=== PATIENT | male | born 1935 | race Caucasian/White ===

== ENCOUNTER 2019-08-06 17:20 | Outpatient (CLI) | payer MEDICARE, OTHER | END 2019-08-06 17:21 | disposition home or self-care (01) | LOC: MADLAB 17:20 | PROVIDERS: ATTEND Family Medicine | DX: D53.9 Nutritional anemia, unspecified (principal) | CPT/HCPCS: 36415; 82607; 82746 ==

== ENCOUNTER 2021-02-17 12:36 | Emergency (ER) | payer MEDICARE, OTHER ==
[2021-02-17] MEDS ORDERED: Acetaminophen 500 MG TAB ONE (13:40)
== END 2021-02-17 13:50 | disposition home or self-care (01) ==
LOC: MADERS 12:36
DX: S70.02XA Contusion of left hip, initial encounter (principal); E11.9 Type 2 diabetes mellitus without complications; E78.5 Hyperlipidemia, unspecified; I10 Essential (primary) hypertension; Z79.899 Other long term (current) drug therapy; W19.XXXA Unspecified fall, initial encounter
CPT/HCPCS: 72170

== ENCOUNTER 2021-06-14 15:30 | Emergency (ER) | payer MEDICARE, OTHER ==
[2021-06-14] MEDS ORDERED: Sodium Chloride 0.9% 1,000 ML ONE (15:53)
[2021-06-14 16:09] LABS: #Basophils 0.1 thou/uL (0.0-0.2); #Eosinphils 0.1 thou/uL (0.0-0.7); #Lymphocytes 1.1 thou/uL (1.20-3.40); #Monocytes 0.5 thou/uL (0.11-0.59); #Neutrophils 3.4 thou/uL (1.40-6.50); %Eosinophils 1.5 % (0.0-10.0); %Lymphocytes 21.5 % (21.0-51.0); %Monocytes 8.9 % (0.0-10.0); %Neutrophils 67.1 % (42.0-75.0); Hemoglobin 13.7 g/dL (14.0-18.0); Mean Corpuscular HGB CONC 34.2 g/dL (32.0-36.0); Mean Corpuscular Hemoglobin 34.8 pg (27.0-31.0); Mean Corpuscular Volume 101.7 fL (78.0-98.0); Mean Platelet Volume 6.3 fL (7.4-10.4); Platelet Count 159 thou/uL (130-400); RBC Distribution Width 11.8 % (11.5-14.5); Red Blood Cell (RBC) Count 3.96 mill/uL (4.70-6.10); White Blood Cell (WBC) Count 5.1 thou/uL (4.8-10.8)
[2021-06-14 16:10] LABS: MDiff Complete? YES; Manual Diff?? NO
[2021-06-14 16:15] LABS: CK (CPK) 72 U/L (30-200); Magnesium 1.8 mg/dL (1.6-2.6)
[2021-06-14 16:28] LABS: Base Excess-Venous 0.1 mmol/L (-2.0 to 3.0); Bicarbonate (HCO3v) 24.1 mmol/L (22.0-28.0); CO2 Tension (PvCO2) 36.2 mmHg (42.0-51.0); Calcium, Ionized 1.11 mmol/L (1.15-1.33); Chloride 105 mmol/L (98-107); Hemoglobin - Calc 12.8 g/dL (14.0-18.0); Potassium 4.6 mmol/L (3.5-5.1); Sodium 136 mmol/L (138-145); T. Carbon Dioxide 25.2 mmol/L (22.0-28.0); vO2 Saturation-calc 99.1 % (60.0-85.0)
[2021-06-14 17:13] LABS: Bilirubin Negative (Negative); Blood, Urine Trace (Negative); Clarity Clear (Clear); Glucose, Urine (Dipstick) 500 mg/dL (Negative); Ketone, Urine Negative (Negative); Leukocyte Negative (Negative); Nitrite Negative (Negative); Protein, Urine (Dipstick) 30 mg/dL (Neg-Trace); Specific Gravity, Urine 1.015 (1.005-1.030)
[2021-06-14 17:17] LABS: RBC/HPF 0-3 HPF (0-3); WBC/HPF None Seen HPF (0-3)
[2021-06-14 17:18] LABS: Bacteria/HPF None Seen HPF (None Seen); Squamous Epithelial 0-3 HPF (0-3)
[2021-06-14] MEDS ORDERED: Insulin Regular 300 UNITS/3 ML VIAL ONE (17:36)
== END 2021-06-14 17:50 | disposition home or self-care (01) ==
LOC: MADERS 15:30
DX: E11.65 Type 2 diabetes mellitus with hyperglycemia (principal); E78.5 Hyperlipidemia, unspecified; E78.00 Pure hypercholesterolemia, unspecified; I10 Essential (primary) hypertension
CPT/HCPCS: 36415; 81003; 81015; 82330; 82435; 82550; 82803; 83735; 84132; 84295; 85014; 85025; 93005; 96374; J1815; J7050

== ENCOUNTER 2021-08-21 09:56 | Emergency (ER) | payer MEDICARE, OTHER ==
[2021-08-21] MEDS ORDERED: Boostrix 0.5 ML (Tdap) VIAL ONE (10:48)
== END 2021-08-21 13:15 | disposition home or self-care (01) ==
LOC: MADERS 09:56
DX: S72.115A Nondisplaced fracture of greater trochanter of left femur, initial encounter for closed fracture (principal); Z23 Encounter for immunization; W18.39XA Other fall on same level, initial encounter; I10 Essential (primary) hypertension; E11.9 Type 2 diabetes mellitus without complications; E78.5 Hyperlipidemia, unspecified; E78.00 Pure hypercholesterolemia, unspecified
CPT/HCPCS: 72170; 90471; 90715

== ENCOUNTER 2021-09-07 11:02 | Inpatient (IN) | payer MEDICARE, OTHER ==
[2021-09-07 13:11] VITALS: BMI 17.2
[2021-09-07] MEDS ORDERED: Lantiseptic Ointment 130 GM JAR TOP PRN (13:49)
[2021-09-07 14:04] LABS: SARS-CoV-2 NAA Rapid Test Not Detected (NotDetected)
[2021-09-07] MEDS ORDERED: traMADol HCl 50 MG TAB PO PRN (14:30)
[2021-09-07 17:50] LABS: ALT (SGPT) 10 U/L (8-55); AST (SGOT) 11 U/L (5-34); Alkaline Phosphatase 110 U/L (40-110); Anion Gap 13 mmol/L (10-20); BUN (Urea Nitrogen) 23 mg/dL (8.4-25.7); Bilirubin, Total 0.5 mg/dL (0.2-1.2); Calc. Creatinine Clearance 29 mL/min (70-130); Carbon Dioxide 27 mmol/L (23-31); Chloride 102 mmol/L (98-107); Globulin 2.8 g/dL (2.4-3.5); Glucose 152 mg/dL (83-110); Potassium 4.4 mmol/L (3.5-5.1); Protein, Total 6.8 g/dL (5.8-8.1); Sodium 138 mmol/L (136-145)
[2021-09-07 17:54] LABS: #Eosinphils 0.1 thou/uL (0.0-0.7); #Lymphocytes 1.4 thou/uL (1.20-3.40); #Monocytes 0.4 thou/uL (0.11-0.59); #Neutrophils 2.5 thou/uL (1.40-6.50); %Basophils 0.8 % (0.0-1.0); %Lymphocytes 31.2 % (21.0-51.0); %Monocytes 9.8 % (0.0-10.0); %Neutrophils 55.3 % (42.0-75.0); Hemoglobin 14.1 g/dL (14.0-18.0); Mean Corpuscular HGB CONC 34.5 g/dL (32.0-36.0); Mean Corpuscular Hemoglobin 34.7 pg (27.0-31.0); Mean Corpuscular Volume 100.6 fL (78.0-98.0); Platelet Count 232 thou/uL (130-400); RBC Distribution Width 11.2 % (11.5-14.5); Red Blood Cell (RBC) Count 4.07 mill/uL (4.70-6.10); White Blood Cell (WBC) Count 4.5 thou/uL (4.8-10.8)
[2021-09-07 17:55] LABS: Anisocytosis SLIGHT = 6-15 cells (100X) (0-5/hpf); MDiff Complete? YES; Macrocytosis SLIGHT = 6-15 cells (100X) (0-5/hpf); Platelet Morphology Comment Appears Adequate
[2021-09-07] MEDS: Acetaminophen 325 MG TAB PO PRN (20:03)
[2021-09-07] MEDS: Donepezil HCl 10 MG TAB PO SCH (20:05)
[2021-09-07] MEDS: Simvastatin 20 MG TAB PO SCH (20:05)
[2021-09-07] MEDS ORDERED: Fluticasone Propionate Nasal Spray 16 gm Bottle NASAL PRN (23:15)
[2021-09-07] MEDS: Lantiseptic Ointment 130 GM JAR TOP SCH (23:19)
[2021-09-07] MEDS ORDERED: Sodium Chloride 0.65% Nasal 44 ML BOT EA NARE PRN (23:36)
[2021-09-07] MEDS: traMADol HCl 50 MG TAB PO PRN (23:40)
[2021-09-08] MEDS: Ferrous Sulfate 325 MG TAB PO SCH (08:47)
[2021-09-08] MEDS: Donepezil HCl 10 MG TAB PO SCH ×2 (08:47→20:28)
[2021-09-08] MEDS: Aspirin 81 mg Enteric Coated Tablet PO SCH (08:47)
[2021-09-08] MEDS: Famotidine 20 MG TAB PO SCH (08:48)
[2021-09-08] MEDS: Enoxaparin Sodium 30 MG/0.3 ML SYRINGE SC SCH (08:48)
[2021-09-08] MEDS: Lantiseptic Ointment 130 GM JAR TOP SCH ×2 (08:49→20:29)
[2021-09-08] MEDS: Oxybutynin ER 5 MG TAB PO SCH (08:49)
[2021-09-08] MEDS: Lisinopril 5 MG TAB PO SCH (08:49)
[2021-09-08] MEDS: Multivitamin W/ Minerals 1 TAB PO SCH (08:49)
[2021-09-08] MEDS: traMADol HCl 50 MG TAB PO PRN ×2 (11:52→20:34)
[2021-09-08] MEDS ORDERED: Polyethylene Glycol 3350 17 GM Packet PO PRN (19:49)
[2021-09-08] MEDS: Simvastatin 20 MG TAB PO SCH (20:28)
[2021-09-08] MEDS: Keri Lotion 15 oz BOT TOP SCH (20:28)
[2021-09-09] MEDS: Aspirin 81 mg Enteric Coated Tablet PO SCH (08:12)
[2021-09-09] MEDS: Lisinopril 5 MG TAB PO SCH (08:12)
[2021-09-09] MEDS: Donepezil HCl 10 MG TAB PO SCH ×2 (08:12→20:27)
[2021-09-09] MEDS: Famotidine 20 MG TAB PO SCH (08:12)
[2021-09-09] MEDS: Oxybutynin ER 5 MG TAB PO SCH (08:12)
[2021-09-09] MEDS: Multivitamin W/ Minerals 1 TAB PO SCH (08:12)
[2021-09-09] MEDS: Ferrous Sulfate 325 MG TAB PO SCH (08:14)
[2021-09-09] MEDS: Enoxaparin Sodium 30 MG/0.3 ML SYRINGE SC SCH (08:14)
[2021-09-09] MEDS: Keri Lotion 15 oz BOT TOP SCH ×3 (08:15→20:27)
[2021-09-09] MEDS: Lantiseptic Ointment 130 GM JAR TOP SCH ×2 (08:18→20:27)
[2021-09-09] MEDS ORDERED: Acetaminophen ER (8hr) 650 MG TAB PO ONE (17:46)
[2021-09-09] MEDS: Acetaminophen 325 MG TAB PO PRN (17:51)
[2021-09-09] MEDS: Simvastatin 20 MG TAB PO SCH (20:27)
[2021-09-10] MEDS: Ferrous Sulfate 325 MG TAB PO SCH (08:06)
[2021-09-10] MEDS: Lisinopril 5 MG TAB PO SCH (08:06)
[2021-09-10] MEDS: Famotidine 20 MG TAB PO SCH (08:06)
[2021-09-10] MEDS: Aspirin 81 mg Enteric Coated Tablet PO SCH (08:06)
[2021-09-10] MEDS: Acetaminophen 325 MG TAB PO PRN (08:06)
[2021-09-10] MEDS: Oxybutynin ER 5 MG TAB PO SCH (08:06)
[2021-09-10] MEDS: Multivitamin W/ Minerals 1 TAB PO SCH (08:06)
[2021-09-10] MEDS: Donepezil HCl 10 MG TAB PO SCH (08:06)
[2021-09-10] MEDS: Enoxaparin Sodium 30 MG/0.3 ML SYRINGE SC SCH (08:07)
[2021-09-10] MEDS: Keri Lotion 15 oz BOT TOP SCH (08:07)
[2021-09-10] MEDS: Lantiseptic Ointment 130 GM JAR TOP SCH (08:08)
[2021-09-10 11:52] VITALS: BP 131/71; TEMP 98
[2021-09-10] MEDS: traMADol HCl 50 MG TAB PO PRN (11:54)
== END 2021-09-10 14:37 | disposition swing bed (61) | DRG 560 ==
LOC: UNDOADMIN 11:02 → MADMS 11:02
PROVIDERS: ADMIT Family Medicine; ATTEND Family Medicine
DX: S72.115D Nondisplaced fracture of greater trochanter of left femur, subsequent encounter for closed fracture with routine healing (principal); S32.592A Other specified fracture of left pubis, initial encounter for closed fracture; I10 Essential (primary) hypertension; Z20.822 Contact with and (suspected) exposure to COVID-19; F02.80 Dementia in other diseases classified elsewhere, unspecified severity, without behavioral disturbance, psychotic disturbance, mood disturbance, and anxiety; E11.9 Type 2 diabetes mellitus without complications; E78.5 Hyperlipidemia, unspecified; G89.29 Other chronic pain; R26.89 Other abnormalities of gait and mobility; M62.81 Muscle weakness (generalized); R53.81 Other malaise; G30.9 Alzheimer's disease, unspecified; W19.XXXD Unspecified fall, subsequent encounter; K59.00 Constipation, unspecified; Z88.0 Allergy status to penicillin; Z88.8 Allergy status to other drugs, medicaments and biological substances; Z79.82 Long term (current) use of aspirin; Z79.84 Long term (current) use of oral hypoglycemic drugs; Z79.899 Other long term (current) drug therapy; Z91.81 History of falling; Z91.19 Patient's noncompliance with other medical treatment and regimen
CPT/HCPCS: 36416; 72192; 80053; 85025; J1650; U0002

== ENCOUNTER 2021-09-10 09:52 | Inpatient (IN) | payer MEDICARE, OTHER ==
[2021-09-10] MEDS ORDERED: Sodium Chloride 0.65% Nasal 44 ML BOT EA NARE PRN (10:13)
[2021-09-10] MEDS ORDERED: Fluticasone Propionate Nasal Spray 16 gm Bottle NASAL PRN (10:13)
[2021-09-10] MEDS ORDERED: busPIRone HCl 5 MG TAB PO SCH (15:00)
[2021-09-10] MEDS: Keri Lotion 15 oz BOT TOP SCH ×2 (16:37→20:55)
[2021-09-10] MEDS: busPIRone HCl 5 MG TAB PO SCH (20:55)
[2021-09-10] MEDS: Donepezil HCl 10 MG TAB PO SCH (20:55)
[2021-09-10] MEDS: Atorvastatin Calcium 10 MG TAB PO SCH (20:55)
[2021-09-10] MEDS: Lantiseptic Ointment 130 GM JAR TOP SCH (20:57)
[2021-09-10] MEDS ORDERED: Donepezil HCl 10 MG TAB PO SCH (21:00)
[2021-09-11] MEDS: traMADol HCl 50 MG TAB PO PRN ×2 (04:47→19:05)
[2021-09-11] MEDS: Famotidine 20 MG TAB PO SCH (08:01)
[2021-09-11] MEDS: Polyethylene Glycol 3350 17 GM Packet PO SCH (08:01)
[2021-09-11] MEDS: Ferrous Sulfate 325 MG TAB PO SCH (08:01)
[2021-09-11] MEDS: busPIRone HCl 5 MG TAB PO SCH ×2 (08:01→21:03)
[2021-09-11] MEDS: Aspirin 81 mg Enteric Coated Tablet PO SCH (08:01)
[2021-09-11] MEDS: Donepezil HCl 10 MG TAB PO SCH ×2 (08:01→21:02)
[2021-09-11] MEDS: Oxybutynin ER 5 MG TAB PO SCH (08:01)
[2021-09-11] MEDS: Multivitamin W/ Minerals 1 TAB PO SCH (08:02)
[2021-09-11] MEDS: Enoxaparin Sodium 30 MG/0.3 ML SYRINGE SC SCH (08:02)
[2021-09-11] MEDS: Lisinopril 5 MG TAB PO SCH (08:02)
[2021-09-11] MEDS: Keri Lotion 15 oz BOT TOP SCH ×3 (08:04→21:04)
[2021-09-11] MEDS: Lantiseptic Ointment 130 GM JAR TOP SCH ×2 (08:05→21:05)
[2021-09-11] MEDS: Atorvastatin Calcium 10 MG TAB PO SCH (21:02)
[2021-09-11] MEDS: Lidocaine 5% Patch TD SCH (21:08)
[2021-09-12] MEDS: Acetaminophen 325 MG TAB PO PRN (03:43)
[2021-09-12] MEDS: Famotidine 20 MG TAB PO SCH (08:25)
[2021-09-12] MEDS: busPIRone HCl 5 MG TAB PO SCH ×2 (08:25→20:29)
[2021-09-12] MEDS: Donepezil HCl 10 MG TAB PO SCH ×2 (08:25→20:29)
[2021-09-12] MEDS: Lisinopril 5 MG TAB PO SCH (08:25)
[2021-09-12] MEDS: Ferrous Sulfate 325 MG TAB PO SCH (08:25)
[2021-09-12] MEDS: Oxybutynin ER 5 MG TAB PO SCH (08:25)
[2021-09-12] MEDS: Aspirin 81 mg Enteric Coated Tablet PO SCH (08:25)
[2021-09-12] MEDS: Multivitamin W/ Minerals 1 TAB PO SCH (08:25)
[2021-09-12] MEDS: Transdermal Patch Removal TOP SCH (08:26)
[2021-09-12] MEDS: Keri Lotion 15 oz BOT TOP SCH ×3 (08:26→20:26)
[2021-09-12] MEDS: Enoxaparin Sodium 30 MG/0.3 ML SYRINGE SC SCH (08:26)
[2021-09-12] MEDS: Lantiseptic Ointment 130 GM JAR TOP SCH ×2 (08:28→20:26)
[2021-09-12] MEDS: Polyethylene Glycol 3350 17 GM Packet PO SCH (08:28)
[2021-09-12] MEDS: Lidocaine 5% Patch TD SCH (20:25)
[2021-09-12] MEDS: Atorvastatin Calcium 10 MG TAB PO SCH (20:27)
[2021-09-12] MEDS: traMADol HCl 50 MG TAB PO SCH (20:27)
[2021-09-13] MEDS: Aspirin 81 mg Enteric Coated Tablet PO SCH (08:15)
[2021-09-13] MEDS: Ferrous Sulfate 325 MG TAB PO SCH (08:15)
[2021-09-13] MEDS: busPIRone HCl 5 MG TAB PO SCH ×2 (08:15→20:24)
[2021-09-13] MEDS: Donepezil HCl 10 MG TAB PO SCH ×2 (08:15→20:24)
[2021-09-13] MEDS: Enoxaparin Sodium 30 MG/0.3 ML SYRINGE SC SCH (08:16)
[2021-09-13] MEDS: Keri Lotion 15 oz BOT TOP SCH ×2 (08:16→20:27)
[2021-09-13] MEDS: Famotidine 20 MG TAB PO SCH (08:17)
[2021-09-13] MEDS: Lisinopril 5 MG TAB PO SCH (08:17)
[2021-09-13] MEDS: Lantiseptic Ointment 130 GM JAR TOP SCH ×2 (08:17→20:26)
[2021-09-13] MEDS: Oxybutynin ER 5 MG TAB PO SCH (08:18)
[2021-09-13] MEDS: traMADol HCl 50 MG TAB PO SCH ×3 (08:18→20:25)
[2021-09-13] MEDS: Multivitamin W/ Minerals 1 TAB PO SCH (08:18)
[2021-09-13] MEDS: Polyethylene Glycol 3350 17 GM Packet PO SCH (08:18)
[2021-09-13] MEDS: Transdermal Patch Removal TOP SCH (08:22)
[2021-09-13] MEDS: Acetaminophen 325 MG TAB PO PRN (12:33)
[2021-09-13] MEDS: Atorvastatin Calcium 10 MG TAB PO SCH (20:24)
[2021-09-13] MEDS: Lidocaine 5% Patch TD SCH (20:24)
[2021-09-14] MEDS: Donepezil HCl 10 MG TAB PO SCH ×2 (08:06→21:25)
[2021-09-14] MEDS: Ferrous Sulfate 325 MG TAB PO SCH (08:06)
[2021-09-14] MEDS: busPIRone HCl 5 MG TAB PO SCH ×2 (08:06→21:25)
[2021-09-14] MEDS: Lantiseptic Ointment 130 GM JAR TOP SCH ×2 (08:06→21:27)
[2021-09-14] MEDS: Keri Lotion 15 oz BOT TOP SCH ×2 (08:06→21:28)
[2021-09-14] MEDS: Aspirin 81 mg Enteric Coated Tablet PO SCH (08:06)
[2021-09-14] MEDS: Oxybutynin ER 5 MG TAB PO SCH (08:07)
[2021-09-14] MEDS: Multivitamin W/ Minerals 1 TAB PO SCH (08:07)
[2021-09-14] MEDS: Famotidine 20 MG TAB PO SCH (08:07)
[2021-09-14] MEDS: Enoxaparin Sodium 30 MG/0.3 ML SYRINGE SC SCH (08:07)
[2021-09-14] MEDS: Lisinopril 5 MG TAB PO SCH (08:07)
[2021-09-14] MEDS: Polyethylene Glycol 3350 17 GM Packet PO SCH (08:08)
[2021-09-14] MEDS: traMADol HCl 50 MG TAB PO SCH ×3 (08:08→21:25)
[2021-09-14] MEDS: Transdermal Patch Removal TOP SCH (08:36)
[2021-09-14 17:14] LABS: SARS-CoV-2 PCR by NAA Not Detected (NotDetected)
[2021-09-14] MEDS: Lidocaine 5% Patch TD SCH ×2 (21:25→21:29)
[2021-09-14] MEDS: Atorvastatin Calcium 10 MG TAB PO SCH (21:29)
[2021-09-15] MEDS: Oxybutynin ER 5 MG TAB PO SCH (08:24)
[2021-09-15] MEDS: busPIRone HCl 5 MG TAB PO SCH ×2 (08:24→20:15)
[2021-09-15] MEDS: Famotidine 20 MG TAB PO SCH (08:24)
[2021-09-15] MEDS: Aspirin 81 mg Enteric Coated Tablet PO SCH (08:24)
[2021-09-15] MEDS: Multivitamin W/ Minerals 1 TAB PO SCH (08:24)
[2021-09-15] MEDS: Donepezil HCl 10 MG TAB PO SCH ×2 (08:24→20:15)
[2021-09-15] MEDS: Ferrous Sulfate 325 MG TAB PO SCH (08:24)
[2021-09-15] MEDS: traMADol HCl 50 MG TAB PO SCH ×3 (08:24→20:15)
[2021-09-15] MEDS: Lisinopril 5 MG TAB PO SCH (08:25)
[2021-09-15] MEDS: Keri Lotion 15 oz BOT TOP SCH ×2 (08:26→20:16)
[2021-09-15] MEDS: Enoxaparin Sodium 30 MG/0.3 ML SYRINGE SC SCH (08:26)
[2021-09-15] MEDS: Polyethylene Glycol 3350 17 GM Packet PO SCH (08:26)
[2021-09-15] MEDS: Lantiseptic Ointment 130 GM JAR TOP SCH ×2 (08:27→20:16)
[2021-09-15] MEDS: Transdermal Patch Removal TOP SCH (08:27)
[2021-09-15] MEDS: Atorvastatin Calcium 10 MG TAB PO SCH (20:15)
[2021-09-16] MEDS: traMADol HCl 50 MG TAB PO SCH ×3 (08:23→22:03)
[2021-09-16] MEDS: Oxybutynin ER 5 MG TAB PO SCH (08:23)
[2021-09-16] MEDS: Aspirin 81 mg Enteric Coated Tablet PO SCH (08:24)
[2021-09-16] MEDS: Ferrous Sulfate 325 MG TAB PO SCH (08:24)
[2021-09-16] MEDS: Lisinopril 5 MG TAB PO SCH (08:24)
[2021-09-16] MEDS: Multivitamin W/ Minerals 1 TAB PO SCH (08:24)
[2021-09-16] MEDS: busPIRone HCl 5 MG TAB PO SCH ×2 (08:24→22:03)
[2021-09-16] MEDS: Donepezil HCl 10 MG TAB PO SCH ×2 (08:25→22:03)
[2021-09-16] MEDS: Famotidine 20 MG TAB PO SCH (08:25)
[2021-09-16] MEDS: Enoxaparin Sodium 30 MG/0.3 ML SYRINGE SC SCH (08:25)
[2021-09-16] MEDS: Keri Lotion 15 oz BOT TOP SCH ×2 (08:25→22:05)
[2021-09-16] MEDS: Polyethylene Glycol 3350 17 GM Packet PO SCH (08:26)
[2021-09-16] MEDS: Lantiseptic Ointment 130 GM JAR TOP SCH ×2 (08:26→22:05)
[2021-09-16] MEDS: Transdermal Patch Removal TOP SCH (08:26)
[2021-09-16] MEDS: Atorvastatin Calcium 10 MG TAB PO SCH (22:03)
[2021-09-16] MEDS: Lidocaine 5% Patch TD SCH (22:03)
[2021-09-17] MEDS: traMADol HCl 50 MG TAB PO SCH ×3 (08:06→21:06)
[2021-09-17] MEDS: Aspirin 81 mg Enteric Coated Tablet PO SCH (08:06)
[2021-09-17] MEDS: Famotidine 20 MG TAB PO SCH (08:06)
[2021-09-17] MEDS: Polyethylene Glycol 3350 17 GM Packet PO SCH (08:06)
[2021-09-17] MEDS: Oxybutynin ER 5 MG TAB PO SCH (08:06)
[2021-09-17] MEDS: Lisinopril 5 MG TAB PO SCH (08:07)
[2021-09-17] MEDS: Ferrous Sulfate 325 MG TAB PO SCH (08:07)
[2021-09-17] MEDS: Multivitamin W/ Minerals 1 TAB PO SCH (08:07)
[2021-09-17] MEDS: busPIRone HCl 5 MG TAB PO SCH ×2 (08:07→21:06)
[2021-09-17] MEDS: Lantiseptic Ointment 130 GM JAR TOP SCH ×2 (08:08→21:07)
[2021-09-17] MEDS: Transdermal Patch Removal TOP SCH (08:08)
[2021-09-17] MEDS: Keri Lotion 15 oz BOT TOP SCH ×2 (08:08→21:07)
[2021-09-17] MEDS: Donepezil HCl 10 MG TAB PO SCH ×2 (08:08→21:06)
[2021-09-17] MEDS: Enoxaparin Sodium 30 MG/0.3 ML SYRINGE SC SCH (08:09)
[2021-09-17] MEDS: Atorvastatin Calcium 10 MG TAB PO SCH (21:06)
[2021-09-17] MEDS: Lidocaine 5% Patch TD SCH (21:07)
[2021-09-18 07:25] VITALS: BP 131/76; TEMP 98
[2021-09-18] MEDS: Famotidine 20 MG TAB PO SCH (08:25)
[2021-09-18] MEDS: busPIRone HCl 5 MG TAB PO SCH (08:25)
[2021-09-18] MEDS: Aspirin 81 mg Enteric Coated Tablet PO SCH (08:25)
[2021-09-18] MEDS: Oxybutynin ER 5 MG TAB PO SCH (08:25)
[2021-09-18] MEDS: traMADol HCl 50 MG TAB PO SCH (08:26)
[2021-09-18] MEDS: Donepezil HCl 10 MG TAB PO SCH (08:26)
[2021-09-18] MEDS: Multivitamin W/ Minerals 1 TAB PO SCH (08:26)
[2021-09-18] MEDS: Ferrous Sulfate 325 MG TAB PO SCH (08:26)
[2021-09-18] MEDS: Lisinopril 5 MG TAB PO SCH (08:27)
[2021-09-18] MEDS: Polyethylene Glycol 3350 17 GM Packet PO SCH (08:28)
[2021-09-18] MEDS: Keri Lotion 15 oz BOT TOP SCH (08:28)
[2021-09-18] MEDS: Enoxaparin Sodium 30 MG/0.3 ML SYRINGE SC SCH (08:28)
[2021-09-18] MEDS: Lantiseptic Ointment 130 GM JAR TOP SCH (08:28)
[2021-09-18] MEDS: Transdermal Patch Removal TOP SCH (08:34)
[2021-09-18 12:54] VITALS: BMI 17.9
[2021-09-18] MEDS ORDERED: Acetaminophen 325 MG TAB PO SCH (15:00)
== END 2021-09-18 14:45 | disposition home or self-care (01) | DRG 560 ==
LOC: MADMS 14:42
PROVIDERS: ADMIT Family Medicine; ATTEND Family Medicine
DX: S72.002D Fracture of unspecified part of neck of left femur, subsequent encounter for closed fracture with routine healing (principal); F02.81 Dementia in other diseases classified elsewhere, unspecified severity, with behavioral disturbance; Z20.822 Contact with and (suspected) exposure to COVID-19; Z66 Do not resuscitate; R53.81 Other malaise; R26.89 Other abnormalities of gait and mobility; F41.9 Anxiety disorder, unspecified; G30.9 Alzheimer's disease, unspecified; E11.22 Type 2 diabetes mellitus with diabetic chronic kidney disease; N18.30 Chronic kidney disease, stage 3 unspecified; E78.5 Hyperlipidemia, unspecified; I12.9 Hypertensive chronic kidney disease with stage 1 through stage 4 chronic kidney disease, or unspecified chronic kidney disease; W18.30XD Fall on same level, unspecified, subsequent encounter; Z79.891 Long term (current) use of opiate analgesic; Z79.82 Long term (current) use of aspirin; Z79.899 Other long term (current) drug therapy; Z88.8 Allergy status to other drugs, medicaments and biological substances; Z88.5 Allergy status to narcotic agent
CPT/HCPCS: 36416; 72192; J1650; U0003; U0005

== ENCOUNTER 2021-10-13 15:06 | Outpatient (CLI) | payer MEDICARE, OTHER | END 2021-10-13 15:07 | disposition home or self-care (01) | LOC: MADRAD 15:06 | PROVIDERS: ATTEND Family Medicine | DX: M25.552 Pain in left hip (principal) | CPT/HCPCS: 72170 ==

== ENCOUNTER 2022-02-28 15:16 | Emergency (ER) | payer MEDICARE, OTHER ==
[2022-02-28] MEDS ORDERED: traMADol HCl 50 MG TAB ONE (16:13)
[2022-02-28 16:39] LABS: #Lymphocytes 0.6 thou/uL (1.20-3.40); #Monocytes 0.6 thou/uL (0.11-0.59); %Basophils 0.3 % (0.0-1.0); %Lymphocytes 7.7 % (21.0-51.0); Hemoglobin 11.9 g/dL (14.0-18.0); Mean Corpuscular HGB CONC 33.7 g/dL (32.0-36.0); Mean Corpuscular Volume 100.8 fL (78.0-98.0); Mean Platelet Volume 6.1 fL (7.4-10.4); Platelet Count 207 thou/uL (130-400); RBC Distribution Width 13.1 % (11.5-14.5); White Blood Cell (WBC) Count 8.2 thou/uL (4.8-10.8)
[2022-02-28 16:51] LABS: ALT (SGPT) 16 U/L (8-55); AST (SGOT) 12 U/L (5-34); Albumin 3.7 g/dL (3.4-4.8); Alkaline Phosphatase 162 U/L (40-110); Anion Gap 19 mmol/L (10-20); BUN (Urea Nitrogen) 28 mg/dL (8.4-25.7); Bilirubin, Total 0.8 mg/dL (0.2-1.2); Calc. Creatinine Clearance 0 mL/min (70-130); Calcium 9.3 mg/dL (7.8-10.44); Carbon Dioxide 22 mmol/L (23-31); Chloride 91 mmol/L (98-107); Estimated GFR 50; Globulin 2.9 g/dL (2.4-3.5); Glucose 261 mg/dL (83-110); Potassium 5.2 mmol/L (3.5-5.1); Protein, Total 6.6 g/dL (5.8-8.1); Sodium 127 mmol/L (136-145)
[2022-02-28] MEDS ORDERED: Sodium Chloride 0.9% 1,000 ML ONE (17:46)
== END 2022-02-28 19:31 | disposition home or self-care (01) ==
LOC: MADERS 15:16
DX: S22.41XA Multiple fractures of ribs, right side, initial encounter for closed fracture (principal); S32.019A Unspecified fracture of first lumbar vertebra, initial encounter for closed fracture; E11.9 Type 2 diabetes mellitus without complications; E78.5 Hyperlipidemia, unspecified; I10 Essential (primary) hypertension; G30.9 Alzheimer's disease, unspecified; F02.80 Dementia in other diseases classified elsewhere, unspecified severity, without behavioral disturbance, psychotic disturbance, mood disturbance, and anxiety; Z79.899 Other long term (current) drug therapy; Z79.82 Long term (current) use of aspirin; Z79.84 Long term (current) use of oral hypoglycemic drugs; W18.30XA Fall on same level, unspecified, initial encounter; Y92.091 Bathroom in other non-institutional residence as the place of occurrence of the external cause
CPT/HCPCS: 36415; 71250; 80053; 85025; 96360; J7050